=== PATIENT | female | born 1995 | race African-American/Black ===

== ENCOUNTER 2018-12-05 02:08 | Emergency (ER) | payer SELFPAY ==
[~2018-12-05] VITALS: Ht 162.6 cm; Wt 108.0 kg
[2018-12-05] MEDS ORDERED: MORPHINE SULFATE 4 MG/ML VIAL. IV ONE (03:00)
[2018-12-05 03:08] LABS: BILIRUBIN,URINE NEGATIVE (NEG); CLARITY,URINE CLEAR; COLOR,URINE YELLOW; NITRITE,URINE NEGATIVE (NEG); PROTEIN,URINE NEGATIVE (NEG-TRACE); UROBILINOGEN,URINE 0.2 mg/dL (0.2 mg/dL)
[2018-12-05 03:14] LABS: BASO # 0.1 x10^3/uL (0.0-0.2); BASO % 1 % (0-3); EOS # 0.1 x10^3/uL (0.0-0.7); EOS % 1 % (0-3); HEMOGLOBIN 8.5 g/dL (12.0-15.5); LYMPH # 2.1 x10^3/uL (1.0-4.8); LYMPH % 20 % (24-48); MEAN CORPUSCULAR HEMOGLOBIN 18 pg (25-35); MEAN CORPUSCULAR HGB CONC 30 g/dL (31-37); MEAN CORPUSCULAR VOLUME 59 fL (79-100); MONO # 0.6 x10^3/uL (0.0-1.1); MONO % 5 % (0-9); NEUT # 7.9 x10^3/uL (1.8-7.7); NEUT % 74 % (31-73); PLATELET COUNT 262 x10^3/uL (140-400); RED BLOOD COUNT 4.74 x10^6/uL (3.50-5.40); RED CELL DISTRIBUTION WIDTH 19.7 % (11.5-14.5); WHITE BLOOD COUNT 10.7 x10^3/uL (4.0-11.0)
[2018-12-05 03:15] LABS: BACTERIA,URINE FEW /HPF (0-FEW); RBC,URINE 0 /HPF (0-2); SQUAMOUS EPITHELIAL CELL,UR MOD /LPF; WBC,URINE OCC /HPF (0-4)
[2018-12-05 03:23] LABS: CALCIUM 8.7 mg/dL (8.5-10.1); CREATININE 0.7 mg/dL (0.6-1.0); GFR 124.4; POTASSIUM 3.5 mmol/L (3.5-5.1)
[2018-12-05 03:28] LABS: ALBUMIN 2.8 g/dL (3.4-5.0); ALBUMIN/GLOBULIN RATIO 0.7 (1.0-1.7); TOTAL BILIRUBIN 0.1 mg/dL (0.2-1.0); TOTAL PROTEIN 6.9 g/dL (6.4-8.2)
[2018-12-05] MEDS ORDERED: IV NORMAL SALINE 1000ML BAG 1,000 ML IV ONE (03:30)
[2018-12-05] MEDS ORDERED: ONDANSETRON PF 4 MG/2 ML VIAL. IV ONE (03:30)
[2018-12-05] MEDS ORDERED: oxyCODONE/APAP 10/325 1 TAB TABLET PO ONE (03:30)
[2018-12-05 04:48] VITALS: BP 115/56
--- NOTE | 2018-12-05 05:02 | PHYS DOC ---
Past Medical History Past Medical History: No Pertinent History Past Surgical History: Tonsillectomy Alcohol Use: None Drug Use: None Adult General Chief Complaint Chief Complaint: ABDOMINAL PAIN HPI HPI Patient is a 23 year old f p/w abdo pain and pelvic pain "from the inside" like electric shocks two days, comes and goes hits her at random "feels like it is coming from inside my vagina" no vagianl bleeding positive nausea and vomiting lmp first week of october hx of sickle cell no vag bleed no vag discharge no fever eating ok in between vomiting episodes. Review of Systems Review of Systems Constitutional: Denies fever or chills [] Eyes: Denies change in visual acuity, redness, or eye pain [] HENT: Denies nasal congestion or sore throat [] Respiratory: Denies cough or shortness of breath [] All other systems were reviewed and found to be within normal limits, except as documented in this note. Current Medications Current Medications Current Medications Medications (Trade) Dose Ordered Sig/Deborah Start Time Stop Time Status Last Admin Dose Admin Morphine Sulfate (Morphine Sulfate) 6 mg 1X ONCE 12/05/18 03:00 12/05/18 03:00 DC Ondansetron HCl (Zofran) 4 mg 1X ONCE 12/05/18 03:30 12/05/18 03:31 DC 12/05/18 03:27 4 MG Oxycodone/ Acetaminophen (Percocet 10/325) 1 tab 1X ONCE 12/05/18 03:30 12/05/18 03:31 DC 12/05/18 03:26 1 TAB Sodium Chloride 1,000 ml @ 1,000 mls/hr 1X ONCE 12/05/18 03:30 12/05/18 04:29 DC 12/05/18 03:26 1,000 MLS/HR Allergies Allergies Allergies Coded Allergies Type Severity Reaction Last Updated Verified No Known Drug Allergies 12/05/18 No Physical Exam Physical Exam Constitutional: Well developed, well nourished, no acute distress, non-toxic appearance. [] HENT: Normocephalic, atraumatic, bilateral external ears normal, oropharynx moist, no oral exudates, nose normal. [] Eyes: PERRLA, EOMI, conjunctiva normal, no discharge. [] Neck: Normal range of motion, no tenderness, supple, no stridor. [] Cardiovascular:Heart rate regular rhythm, no murmur [] Lungs & Thorax: Bilateral breath sounds clear to auscultation [] Abdomen: Bowel sounds normal, soft, suprapubic tenderness, no masses, no pul satile masses. [] Skin: Warm, dry, no erythema, no rash. [] Back: No tenderness, no CVA tenderness. [] Extremities: No tenderness, no cyanosis, no clubbing, ROM intact, no edema. [] Neurologic: Alert and oriented X 3, normal motor function, normal sensory function, no focal deficits noted. [] Psychologic: Affect normal, judgement normal, mood normal. [] Current Patient Data Vital Signs Vital Signs Date Time Temp Pulse Resp B/P (MAP) Pulse Ox O2 Delivery O2 Flow Rate FiO2 12/05/18 04:48 91 16 115/56 (75) Room Air 12/05/18 02:47 98.3 98.3 12/05/18 02:20 100 Lab Values Laboratory Tests Test 12/05/18 02:15 12/05/18 02:16 12/05/18 03:05 Urine Collection Type Unknown Urine Color Yellow Urine Clarity Clear Urine pH 6.0 Urine Specific [place] 1.020 Urine Protein Negative mg/dL (NEG-TRACE) Urine Glucose (UA) Negative mg/dL (NEG) Urine Ketones (Stick) Trace mg/dL (NEG) Urine Blood Negative (NEG) Urine Nitrite Negative (NEG) Urine Bilirubin Negative (NEG) Urine Urobilinogen Dipstick 0.2 mg/dL (0.2 mg/dL) Urine Leukocyte Esterase Negative (NEG) Urine RBC 0 /HPF (0-2) Urine WBC Occ /HPF (0-4) Urine Squamous Epithelial Cells Mod /LPF Urine Bacteria Few /HPF (0-FEW) Urine Mucus Marked /LPF POC Urine HCG, Qualitative Hcg positive (Negative) White Blood Count 10.7 x10^3/uL (4.0-11.0) Red Blood Count 4.74 x10^6/uL (3.50-5.40) Hemoglobin 8.5 g/dL (12.0-15.5) L Hematocrit 28.0 % (36.0-47.0) L Mean Corpuscular Volume 59 fL (79-100) L Mean Corpuscular Hemoglobin 18 pg (25-35) L Mean Corpuscular Hemoglobin Concent 30 g/dL (31-37) L Red Cell Distribution Width 19.7 % (11.5-14.5) H Platelet Count 262 x10^3/uL (140-400) Neutrophils (%) (Auto) 74 % (31-73) H Lymphocytes (%) (Auto) 20 % (24-48) L Monocytes (%) (Auto) 5 % (0-9) Eosinophils (%) (Auto) 1 % (0-3) Basophils (%) (Auto) 1 % (0-3) Neutrophils # (Auto) 7.9 x10^3/uL (1.8-7.7) H Lymphocytes # (Auto) 2.1 x10^3/uL (1.0-4.8) Monocytes # (Auto) 0.6 x10^3/uL (0.0-1.1) Eosinophils # (Auto) 0.1 x10^3/uL (0.0-0.7) Basophils # (Auto) 0.1 x10^3/uL (0.0-0.2) Platelet Estimate Pending Maternal Serum HCG Beta Subunit 3008 mIU/mL (0-5) H Sodium Level 142 mmol/L (136-145) Potassium Level 3.5 mmol/L (3.5-5.1) Chloride Level 106 mmol/L (98-107) Carbon Dioxide Level 26 mmol/L (21-32) Anion Gap 10 (6-14) Blood Urea Nitrogen 4 mg/dL (7-20) L Creatinine 0.7 mg/dL (0.6-1.0) Estimated GFR (Cockcroft-Gault) 124.4 BUN/Creatinine Ratio 6 (6-20) Glucose Level 138 mg/dL (70-99) H Calcium Level 8.7 mg/dL (8.5-10.1) Total Bilirubin 0.1 mg/dL (0.2-1.0) L Aspartate Amino Transferase (AST) 14 U/L (15-37) L Alanine Aminotransferase (ALT) 18 U/L (14-59) Alkaline Phosphatase 55 U/L (46-116) Total Protein 6.9 g/dL (6.4-8.2) Albumin 2.8 g/dL (3.4-5.0) L Albumin/Globulin Ratio 0.7 (1.0-1.7) L Laboratory Tests 12/05/18 03:05 Laboratory Tests 12/05/18 03:05 EKG EKG [] Radiology/Procedures Radiology/Procedures [] Impressions: wet read from tech 5 week gs noted final read pending Course & Med Decision Making Course & Med Decision Making Pertinent Labs and Imaging studies reviewed. (See chart for details) []early advised repeat follow up beta and imaging for any recurrent or not improving symptoms. pt voiced undersatnding. Dragon Disclaimer Dragon Disclaimer This electronic medical record was generated, in whole or in part, using a voice recognition dictation system. Departure Departure Impression: Primary Impression: First trimester Disposition: 01 HOME, SELF-CARE Condition: STABLE Referrals: TINA BUCK MD Patient Instructions: - First Trimester, [id number] BIBIANA GIRALDO MD Dec 05, 2018 05:02
--- NOTE | 2018-12-05 05:54 | RAD ---
INDICATION: Nausea and vomiting with pelvic pain COMPARISON: None. TECHNIQUE: Grayscale and color ultrasound images uterus and adnexa. Transabdominal and transvaginal images obtained. FINDINGS: Uterus: 89 x 57 x 52 mm. Intrauterine gestational sac is identified. Mean sac diameter of 7.5 mm. Small free fluid. Right Ovary: 24 x 17 x 16 mm. Left Ovary: 35 x 19 x 19 mm. Vascular flow identified to bilateral ovaries. Probable corpus luteum cyst left ovary. IMPRESSION: 1. Cystic structure within the uterus is identified and could be from an early gestational sac. The mean sac diameter correlates with 5 week and 4 day gestation. There is no definite pole seen at this time. Would consider obtaining a follow-up exam to ensure that there is appropriate development of a pole and also to ensure that this is not from a pseudogestational sac. Electronically signed by: Ashkan Scott MD (12/05/2018 5:51 AM) [id number]
[2018-12-05 09:45] LABS: HYPOCHROMIA PRESENT; PLT ESTIMATE ADEQUATE (ADEQUATE)
[2018-12-05 09:46] LABS: ANISOCYTOSIS PRESENT; MICROCYTOSIS PRESENT; POLYCHROMASIA PRESENT
== END 2018-12-05 04:40 | disposition home or self-care (01) ==
LOC: ER 02:08
DX: Z33.1 Pregnant state, incidental (principal); R10.30 Lower abdominal pain, unspecified; R11.2 Nausea with vomiting, unspecified; R10.2 Pelvic and perineal pain
CPT/HCPCS: 36415; 76817; 80053; 81001; 81025; 84702; 85025; 96361; 96374; 99285; J2405; J7030

== ENCOUNTER 2019-01-03 15:45 | Emergency (ER) | payer SELFPAY ==
[~2019-01-03] VITALS: Ht 162.6 cm; Wt 136.1 kg
[2019-01-03 16:12] VITALS: BP 142/67
[2019-01-03 16:38] LABS: BILIRUBIN,URINE NEGATIVE (NEG); CLARITY,URINE CLOUDY; COLOR,URINE YELLOW; NITRITE,URINE NEGATIVE (NEG); PH,URINE 5.5; PROTEIN,URINE >=300 mg/dL (NEG-TRACE); UROBILINOGEN,URINE 0.2 mg/dL (0.2 mg/dL)
[2019-01-03 16:46] LABS: BARBITURATES NEG (NEG); BENZODIAZEPINES NEG (NEG); CANNABINOIDS NEG (NEG); COCAINE NEG (NEG); METHADONE NEG (NEG); OPIATES POS (NEG); PHENCYCLIDINE NEG (NEG)
[2019-01-03 16:50] LABS: BACTERIA,URINE MODERATE /HPF (0-FEW); HYALINE CASTS, URINE OCCASIONAL /HPF; RBC,URINE 0 /HPF (0-2); SQUAMOUS EPITHELIAL CELL,UR OCC /LPF
[2019-01-03 16:51] LABS: BASO # 0.1 x10^3/uL (0.0-0.2); BASO % 1 % (0-3); EOS % 0 % (0-3); HEMATOCRIT 30.5 % (36.0-47.0); HEMOGLOBIN 9.4 g/dL (12.0-15.5); LYMPH # 1.2 x10^3/uL (1.0-4.8); LYMPH % 12 % (24-48); MEAN CORPUSCULAR HEMOGLOBIN 19 pg (25-35); MEAN CORPUSCULAR HGB CONC 31 g/dL (31-37); MEAN CORPUSCULAR VOLUME 60 fL (79-100); MONO # 0.5 x10^3/uL (0.0-1.1); MONO % 6 % (0-9); NEUT # 7.7 x10^3/uL (1.8-7.7); NEUT % 81 % (31-73); PLATELET COUNT 239 x10^3/uL (140-400); RED BLOOD COUNT 5.08 x10^6/uL (3.50-5.40); RED CELL DISTRIBUTION WIDTH 21.8 % (11.5-14.5); WHITE BLOOD COUNT 9.5 x10^3/uL (4.0-11.0)
[2019-01-03 16:59] LABS: CALCIUM 9.3 mg/dL (8.5-10.1); CREATININE 0.9 mg/dL (0.6-1.0); GFR 93.1; POTASSIUM 3.6 mmol/L (3.5-5.1)
[2019-01-03 17:05] LABS: ALBUMIN/GLOBULIN RATIO 0.7 (1.0-1.7); TOTAL BILIRUBIN 0.2 mg/dL (0.2-1.0); TOTAL PROTEIN 7.5 g/dL (6.4-8.2)
[2019-01-03 17:09] LABS: AMPHETAMINE/METHAMPHETAMINE NEG (NEG)
--- NOTE | 2019-01-03 17:16 | RAD ---
OB < 14 WKS History: Abdominal pain. . Comparison: None. Technique: Grayscale and color Doppler imaging of the pelvis was performed using transabdominal and transvaginal technique. Findings: The uterus measures 12 x 7 x 6 cm in length. Intrauterine with crown-rump length 3.1 cm. heart rate 189 beats per minutes. Estimated gestational age by ultrasound 10 weeks 0 days. Right ovary measures 2.5 x 1.7 x 1.3 cm and is unremarkable. Left ovary measures 3.1 x 1.7 x 1.3 cm and is unremarkable. No adnexal masses are seen. IMPRESSION: 1. Intrauterine gestational age 10 weeks with heart rate 189 bpm. Electronically signed by: Pasha Vargas DO (01/03/2019 5:14 PM) [email or web address]
--- NOTE | 2019-01-03 17:38 | PHYS DOC ---
Past Medical History Past Medical History: Asthma, Other Additional Past Medical Histor: Sickle cell Past Surgical History: Tonsillectomy Alcohol Use: None Drug Use: None Adult General Chief Complaint Chief Complaint: ABDOMINAL PAIN IN HPI HPI Patient is a 23 year old female with history of asthma 2 para 1 currently 9 weeks in police custody presenting to the ED today complaining of 7 out of 10 intermittent sharp lower abdominal pain that began at 11 AM this morning. Patient denies any exacerbating or relieving factors. She is also complaining of vaginal discharge for couple days. Patient denies any concerns for STDs. Denies any urgency, frequency, dysuria. Denies any back pain. Denies any vaginal bleeding. Review of Systems Review of Systems Constitutional: Denies fever or chills [] Eyes: Denies change in visual acuity, redness, or eye pain [] HENT: Denies nasal congestion or sore throat [] Respiratory: Denies cough or shortness of breath [] Cardiovascular: No additional information not addressed in HPI [] GI: Reports abdominal pain in , vaginal bleeding, denies nausea, vomiting, bloody stools or diarrhea [] : Denies dysuria or hematuria [] Musculoskeletal: Denies back pain or joint pain [] Integument: Denies rash or skin lesions [] Neurologic: Denies headache, focal weakness or sensory changes [] All other systems were reviewed and found to be within normal limits, except as documented in this note. Allergies Allergies Allergies Coded Allergies Type Severity Reaction Last Updated Verified No Known Drug Allergies 12/05/18 No Physical Exam Physical Exam Constitutional: Well developed, well nourished, no acute distress, non-toxic appearance. [] HENT: Normocephalic, atraumatic, bilateral external ears normal, oropharynx moist, no oral exudates, nose normal. [] Eyes: PERRLA, EOMI, conjunctiva normal, no discharge. [] Neck: Normal range of motion, no tenderness, supple, no stridor. [] Cardiovascular:Heart rate regular rhythm, no murmur [] Lungs & Thorax: Bilateral breath sounds clear to auscultation [] Abdomen: Bowel sounds normal, soft, no tenderness, no masses, no pulsatile masses. [] Pelvic exam External pelvic appears normal, cervix is not visualized due to body habitus, no CMT, no adnexal tenderness. Skin: Warm, dry, no erythema, no rash. [] Back: No tenderness, no CVA tenderness. [] Extremities: No tenderness, no cyanosis, no clubbing, ROM intact, no edema. [] Neurologic: Alert and oriented X 3, normal motor function, normal sensory function, no focal deficits noted. [] Psychologic: Affect normal, judgement normal, mood normal. [] Current Patient Data Vital Signs Vital Signs Date Time Temp Pulse Resp B/P (MAP) Pulse Ox O2 Delivery O2 Flow Rate FiO2 01/03/19 16:12 99.0 104 18 142/67 (92) 99 Room Air 99.0 Lab Values Laboratory Tests Test 01/03/19 15:55 01/03/19 16:26 01/03/19 16:36 Urine Color Yellow Urine Clarity Cloudy Urine pH 5.5 Urine Specific [place] >=1.030 Urine Protein >=300 mg/dL (NEG-TRACE) Urine Glucose (UA) Negative mg/dL (NEG) Urine Ketones (Stick) Negative mg/dL (NEG) Urine Blood Negative (NEG) Urine Nitrite Negative (NEG) Urine Bilirubin Negative (NEG) Urine Urobilinogen Dipstick 0.2 mg/dL (0.2 mg/dL) Urine Leukocyte Esterase Trace (NEG) Urine RBC 0 /HPF (0-2) Urine WBC 5-10 /HPF (0-4) Urine Squamous Epithelial Cells Occ /LPF Urine Bacteria Moderate /HPF (0-FEW) Urine Hyaline Casts Occasional /HPF Urine Mucus Mod /LPF Urine Opiates Screen Pos (NEG) Urine Methadone Screen Neg (NEG) Urine Barbiturates Neg (NEG) Urine Phencyclidine Screen Neg (NEG) Urine Amphetamine/Methamphetamine Neg (NEG) Urine Benzodiazepines Screen Neg (NEG) Urine Cocaine Screen Neg (NEG) Urine Cannabinoids Screen Neg (NEG) Urine Ethyl Alcohol Neg (NEG) POC Urine HCG, Qualitative Hcg positive (Negative) White Blood Count 9.5 x10^3/uL (4.0-11.0) Red Blood Count 5.08 x10^6/uL (3.50-5.40) Hemoglobin 9.4 g/dL (12.0-15.5) L Hematocrit 30.5 % (36.0-47.0) L Mean Corpuscular Volume 60 fL (79-100) L Mean Corpuscular Hemoglobin 19 pg (25-35) L Mean Corpuscular Hemoglobin Concent 31 g/dL (31-37) Red Cell Distribution Width 21.8 % (11.5-14.5) H Platelet Count 239 x10^3/uL (140-400) Neutrophils (%) (Auto) 81 % (31-73) H Lymphocytes (%) (Auto) 12 % (24-48) L Monocytes (%) (Auto) 6 % (0-9) Eosinophils (%) (Auto) 0 % (0-3) Basophils (%) (Auto) 1 % (0-3) Neutrophils # (Auto) 7.7 x10^3/uL (1.8-7.7) Lymphocytes # (Auto) 1.2 x10^3/uL (1.0-4.8) Monocytes # (Auto) 0.5 x10^3/uL (0.0-1.1) Eosinophils # (Auto) 0.0 x10^3/uL (0.0-0.7) Basophils # (Auto) 0.1 x10^3/uL (0.0-0.2) Platelet Estimate Pending Maternal Serum HCG Beta Subunit 45066 mIU/mL (0-5) H Sodium Level 138 mmol/L (136-145) Potassium Level 3.6 mmol/L (3.5-5.1) Chloride Level 102 mmol/L (98-107) Carbon Dioxide Level 24 mmol/L (21-32) Anion Gap 12 (6-14) Blood Urea Nitrogen 8 mg/dL (7-20) Creatinine 0.9 mg/dL (0.6-1.0) Estimated GFR (Cockcroft-Gault) 93.1 BUN/Creatinine Ratio 9 (6-20) Glucose Level 130 mg/dL (70-99) H Calcium Level 9.3 mg/dL (8.5-10.1) Total Bilirubin 0.2 mg/dL (0.2-1.0) Aspartate Amino Transferase (AST) 20 U/L (15-37) Alanine Aminotransferase (ALT) 38 U/L (14-59) Alkaline Phosphatase 64 U/L (46-116) Total Protein 7.5 g/dL (6.4-8.2) Albumin 3.0 g/dL (3.4-5.0) L Albumin/Globulin Ratio 0.7 (1.0-1.7) L Ethyl Alcohol Level < 10 mg/dL (0-10) Laboratory Tests 01/03/19 16:36 Laboratory Tests 01/03/19 16:36 Microbiology 01/03/19 Wet Prep - Final, Complete EKG EKG [] Radiology/Procedures Radiology/Procedures []PROCEDURE: OB < 14 WKS OB < 14 WKS History: Abdominal pain. . Comparison: None. Technique: Grayscale and color Doppler imaging of the pelvis was performed using transabdominal and transvaginal technique. Findings: The uterus measures 12 x 7 x 6 cm in length. Intrauterine with crown-rump length 3.1 cm. heart rate 189 beats per minutes. Estimated gestational age by ultrasound 10 weeks 0 days. Right ovary measures 2.5 x 1.7 x 1.3 cm and is unremarkable. Left ovary measures 3.1 x 1.7 x 1.3 cm and is unremarkable. No adnexal masses are seen. IMPRESSION: 1. Intrauterine gestational age 10 weeks with heart rate 189 bpm. Electronically signed by: Tricia Carrizales DO (01/03/2019 5:14 PM) [email or web address] DICTATED and SIGNED BY: TRICIA CARRIZALES DO DATE: 01/03/19 1714 Course & Med Decision Making Course & Med Decision Making Pertinent Labs and Imaging studies reviewed. (See chart for details) This is a 23-year-old female patient presenting to the ED today complaining of abdominal pain in , patient is a 2 para 1 currently in police custody. Positive urine hCG, beta-hCG 63236, CMP with no acute findings, CBC with normal WBC, hemoglobin 9.4, hematocrit 30.5. Wet prep noted for yeast infection. No clue cells, OB ultrasound noted for IUP 10 weeks, heart rate 189 Patient was discharged with police custody instructed to use [id number] miconazole for the yeast infection. Encouraged to take vitamins and follow up with an BILL CLERK as soon as possible. Dragon Disclaimer Dragon Disclaimer This electronic medical record was generated, in whole or in part, using a voice recognition dictation system. Departure Departure Impression: Primary Impression: Abdominal pain in Additional Impression: Vaginal yeast infection Disposition: 01 HOME, SELF-CARE Condition: STABLE Referrals: NO PCP (PCP) SHASHANK THOMPSON MD Follow-up with her BILL CLERK as soon as you can Patient Instructions: Abdominal Pain During , [id number] Additional Instructions: You were related to the emergency room for abdominal pain please consider using vitamins. Use [id number] miconazole for the vaginal yeast in fection. Follow-up with the BILL CLERK Problem Qualifiers Primary Impression: Abdominal pain in Trimester: first trimester Qualified Codes: O26.891 - Other specified related conditions, first trimester; R10.9 - Unspecified abdominal pain SUSHIL JETER APRN Jan 03, 2019 17:38
[2019-01-03 17:51] LABS: PLT ESTIMATE ADEQUATE (ADEQUATE)
[2019-01-03 17:52] LABS: ANISOCYTOSIS SLIGHT; HYPOCHROMIA MOD; MICROCYTOSIS SLIGHT; POLYCHROMASIA SLIGHT
[2019-01-05 00:07] LABS: GC PROBE Negative (Negative)
== END 2019-01-03 18:00 | disposition home or self-care (01) ==
LOC: EEVIPCON 15:45 → ER 15:45
DX: O98.811 Other maternal infectious and parasitic diseases complicating pregnancy, first trimester (principal); B37.3 Candidiasis of vulva and vagina; O99.511 Diseases of the respiratory system complicating pregnancy, first trimester; J45.909 Unspecified asthma, uncomplicated; Z90.89 Acquired absence of other organs; Z3A.10 10 weeks gestation of pregnancy
CPT/HCPCS: 36415; 76801; 80053; 80307; 81001; 81025; 84702; 85025; 87086; 87491; 87591; 99285; G0480; Q0111